=== PATIENT | female | born 1980 | race Caucasian/White ===

== ENCOUNTER 2016-05-07 09:17 | Emergency (ER) | payer OTHER ==
[2016-05-07 09:37] VITALS: BP 113/68
--- NOTE | 2016-05-07 09:55 | UC ---
Respiratory Complaint HPI - HPI Summary HPI Summary: 35 yo female with close to a week hx of sinus pressure and pain /post nasal drip now with left otalgia and decreased hearing chills ? fever upper teeth and gums hurt - History of Current Complaint Chief Complaint: UCGeneralIllness Stated Complaint: SORE THROAT,EAR PAIN,SINUS Time Seen by Provider: 05/07/16 09:48 Hx Obtained From: Patient Hx Last Menstrual Period: Last Depo 02/2016; No menes since depo d/c. Onset/Duration: Lasting Days Timing: Constant Severity Initially: Mild Severity Currently: Moderate Pain Intensity: 4 Character: Cough: Nonproductive Aggravating Factors: Nothing Alleviating Factors: Nothing Associated Signs And Symptoms: Positive: Fever - pepper, Chills, URI, Nasal Congestion, Sinus Discomfort - Allergies/Home Medications Allergies/Adverse Reactions: Allergies Allergy/AdvReac Type Severity Reaction Status Date / Time No Known Allergies Allergy Verified 05/07/16 09:27 Home Medications: Home Medications [id number] [Nyquil Severe Cold/Flu 5-6.25-10-325 mg/15Ml] 2 tab PO SEE INSTRUCTIONS PRN 05/07/16 [History Confirmed 05/07/16] PMH/Surg Hx/FS Hx/Imm Hx Previously Healthy: Yes Respiratory History Of: Reports: Bronchitis - x1 - Surgical History Surgical History: Yes Surgery Procedure, Year, and Place: BILATERAL TUBES EARS, 2008 - Family History Known Family History: Positive: Hypertension Negative: Cardiac Disease, Diabetes - Social History Alcohol Use: Rare Substance Use Type: None Smoking Status (MU): Heavy Every Day Tobacco Smoker Type: Cigarettes Amount Used/How Often: 1/2ppd Length of Time of Smoking/Using Tobacco: 15 Years Have You Smoked in the Last Year: Yes Household Exposure Type: Cigarettes - Immunization History Most Recent Influenza Vaccination: 01/2016 Most Recent Tetanus Shot: 2000 Review of Systems Constitutional: Fever, Chills Skin: Negative Eyes: Negative ENT: Dental Pain, Nasal Discharge Respiratory: Cough Cardiovascular: Negative Gastrointestinal: Negative Genitourinary: Negative Motor: Negative Neurovascular: Negative Musculoskeletal: Negative Neurological: Negative Psychological: Negative All Other Systems Reviewed And Are Negative: Yes Physical Exam Triage Information Reviewed: Yes Appearance: Well-Appearing, No Pain Distress, Well-Nourished Vital Signs: Initial Vital Signs Temp 98.6 F 05/07/16 09:30 Pulse 78 05/07/16 09:30 Resp 18 05/07/16 09:30 BP 113/68 05/07/16 09:30 Pulse Ox 99 05/07/16 09:30 Eyes: Positive: Conjunctiva Clear ENT: Positive: Nasal congestion, Nasal drainage, TMs normal - Right, TM bulging - Left, TM dull - L, Other: - L>R max sinus tenderness. Negative: Hearing grossly normal - markedly decreased left, Tonsillar swelling, Tonsillar exudate , Trismus, Muffled/hoarse voice Dental Exam: Normal Dental: Negative: Dental Fracture @, Abscess @ Neck: Positive: Supple, Nontender, No Lymphadenopathy Respiratory: Positive: Lungs clear, Normal breath sounds, No respiratory distress, No accessory muscle use Cardiovascular: Positive: RRR, No Murmur Musculoskeletal: Positive: ROM Intact Neurological: Positive: Alert Psychological Exam: Normal Skin Exam: Normal UC Diagnostic Evaluation - Laboratory O2 Sat by Pulse Oximetry: 99 Respiratory Course/Dx - Differential Dx/Diagnosis Provider Diagnoses: acute sinusitis. left serous otitis media Discharge - Discharge Plan Condition: Stable Disposition: HOME Prescriptions: Cefuroxime Axetil [Ceftin 250 MG] 250 mg PO BID #20 tab Fluticasone NASAL SPRAY 50MCG* [Flonase NASAL SPRAY 50MCG*] 2 spray BOTH NARES DAILY #1 btl Prednisone [Deltasone] 40 mg PO DAILY #10 tab Patient Education Materials: Sinusitis (ED), Serous Otitis Media (ED) Referrals: Aleena Day MD [Primary Care Provider] - Additional Instructions: recheck for new or worsening symptoms or if hearing not back to normal in 2-3 weeks
== END 2016-05-07 10:02 | disposition home or self-care (01) ==
LOC: UCCORT 09:17
DX: J01.90 Acute sinusitis, unspecified (principal); H65.92 Unspecified nonsuppurative otitis media, left ear; F17.210 Nicotine dependence, cigarettes, uncomplicated
CPT/HCPCS: 99212; G0463

== ENCOUNTER 2016-08-07 13:44 | Emergency (ER) | payer OTHER ==
[2016-08-07 14:51] VITALS: BP 131/80
[2016-08-07] MEDS ORDERED: Tetan/Diph/Pertus SYR(Tdap)* 0.5 ML SYR(BOOSTRIX) use SYR IM ONE (15:03)
--- NOTE | 2016-08-07 15:05 | UC ---
Laceration HPI - HPI Summary HPI Summary: pt presents with c/o laceration to left lateral mid thumb. Pt was cutting up watermelon and knife lacerated left thumb. Pt is not utd with tetanus - History Of Current Complaint Chief Complaint: UCLaceration Stated Complaint: LFT HAND THUMB LAC Time Seen by Provider: 08/07/16 14:44 Hx Obtained From: Patient Laceration Location: Finger - left thumb Mechanism Of Injury: Sharp Trauma - kitchen knife Onset/Duration: Still Present Severity: Mild Aggravating Factors: Movement Related History: Dominant Hand Right - Allergies/Home Medications Allergies/Adverse Reactions: Allergies Allergy/AdvReac Type Severity Reaction Status Date / Time No Known Allergies Allergy Verified 08/07/16 14:51 PMH/Surg Hx/FS Hx/Imm Hx Previously Healthy: Yes - Surgical History Surgical History: Yes Surgery Procedure, Year, and Place: BILATERAL TUBES EARS, 2008 - Family History Known Family History: Positive: Hypertension Negative: Cardiac Disease, Diabetes - Social History Alcohol Use: Rare Substance Use Type: None Smoking Status (MU): Heavy Every Day Tobacco Smoker Type: Cigarettes Amount Used/How Often: 1/2ppd Length of Time of Smoking/Using Tobacco: 1997 Have You Smoked in the Last Year: Yes Household Exposure Type: Cigarettes - Immunization History Most Recent Influenza Vaccination: 01/2016 Most Recent Tetanus Shot: 2000 Review of Systems Constitutional: Negative Skin: Other - laceration left thumb Eyes: Negative ENT: Negative Respiratory: Negative Cardiovascular: Negative Gastrointestinal: Negative Genitourinary: Negative Motor: Negative Neurovascular: Negative Musculoskeletal: Negative Neurological: Negative Psychological: Negative All Other Systems Reviewed And Are Negative: Yes Physical Exam Triage Information Reviewed: Yes Appearance: Well-Appearing Vital Signs: Initial Vital Signs Temp 98.2 F 08/07/16 14:43 Pulse 59 08/07/16 14:43 Resp 16 08/07/16 14:43 BP 131/80 08/07/16 14:43 Pulse Ox 99 08/07/16 14:43 Vital Signs Reviewed: Yes Eye Exam: Normal Neck exam: Normal Respiratory Exam: Normal Musculoskeletal Exam: Normal Musculoskeletal: Positive: Strength Intact, ROM Intact Neurological Exam: Normal Psychological Exam: Normal Skin Exam: Other - laceration lateral mid left thumb Laceration Repair - Laceration Repair 1 Description: Linear Laceration Size After Repair: Length (cm) - 2, Width (mm) - 2, Depth (mm) - 1 Modified For Repair: No Cleansing Completed Via Routine Prep: Yes Closure Material: Skin Adhesive, SteriStrips Closure Method: Single Layer - laceration repair with skin adhesive and steristrips, edges well approximated. Pt tolerated procedure well. Laceration Course/Dx - Differential Dx - Laceration/Wound Differental Diagnoses: Laceration Provider Diagnoses: Laceration left mid latear thumb repaired with skin adhesive and steri strips Discharge - Discharge Plan Condition: Stable Disposition: HOME Prescriptions: Cephalexin CAP* [Keflex 500 CAP*] 500 mg PO Q12H #10 cap Patient Education Materials: Laceration (ED), Skin Adhesive Care (ED) Forms: *Work Release Referrals: Aleena Day MD [Primary Care Provider] - Additional Instructions: Please keep splint on for 5 days for 24 hours a day. Please change dressing daily or more often if needed. Do not put antibiotic ointment on wound and do not remove steri strips. They will fall off on own.
== END 2016-08-07 15:35 | disposition home or self-care (01) ==
LOC: UCCORT 13:44
DX: S61.012A Laceration without foreign body of left thumb without damage to nail, initial encounter (principal); W26.0XXA Contact with knife, initial encounter; Y93.G1 Activity, food preparation and clean up; Y92.9 Unspecified place or not applicable; Z23 Encounter for immunization; F17.210 Nicotine dependence, cigarettes, uncomplicated
CPT/HCPCS: 12001; 90471; 90715; 99212; G0463

== ENCOUNTER 2017-01-28 08:35 | Emergency (ER) | payer OTHER ==
[2017-01-28 09:36] VITALS: BP 119/64
--- NOTE | 2017-01-28 10:25 | UC ---
Throat Pain/Nasal Brian HPI - HPI Summary HPI Summary: pt c/o sudden onset of sore throat, and bilateral ear pain X 2 days. - History of Current Complaint Chief Complaint: UCRespiratory Stated Complaint: SORE THROAT Time Seen by Provider: 01/28/17 09:54 Hx Obtained From: Patient Hx Last Menstrual Period: 12/21/16- on B/C pills to regulate menses ?: No Onset/Duration: Sudden Onset, Lasting Days, Still Present Severity: Moderate Associated Signs & Symptoms: Positive: Dysphagia - Allergies/Home Medications Allergies/Adverse Reactions: Allergies Allergy/AdvReac Type Severity Reaction Status Date / Time No Known Allergies Allergy Verified 01/28/17 09:36 Home Medications: Home Medications Desogestrel & Ethinyl Estradio [Enskyce 0.15-30 mg-Mcg] 1 tab PO DAILY 01/28/17 [History Confirmed 01/28/17] PMH/Surg Hx/FS Hx/Imm Hx Previously Healthy: Yes - Surgical History Surgical History: Yes Surgery Procedure, Year, and Place: BILATERAL TUBES EARS, 2008 - Family History Known Family History: Positive: Unknown, Hypertension Negative: Cardiac Disease, Diabetes - Social History Occupation: Employed Full-time Lives: With Family Alcohol Use: Occasionally Substance Use Type: None Smoking Status (MU): Heavy Every Day Tobacco Smoker Type: Cigarettes Amount Used/How Often: 1/2ppd Length of Time of Smoking/Using Tobacco: 1997 Have You Smoked in the Last Year: Yes Household Exposure Type: Cigarettes - Immunization History Most Recent Influenza Vaccination: 01/26/17 Most Recent Tetanus Shot: 2000 Vaccination Up to Date: Yes Review of Systems Constitutional: Fatigue Skin: Negative Eyes: Negative ENT: Sore Throat, Ear Ache Respiratory: Negative Cardiovascular: Negative Gastrointestinal: Negative Genitourinary: Negative Motor: Negative Neurovascular: Negative Musculoskeletal: Negative Neurological: Headache Psychological: Negative Is Patient Immunocompromised?: No All Other Systems Reviewed And Are Negative: Yes Physical Exam Triage Information Reviewed: Yes Appearance: Ill-Appearing Vital Signs: Initial Vital Signs Temp 97.4 F 01/28/17 09:31 Pulse 66 01/28/17 09:31 Resp 16 01/28/17 09:31 BP 119/64 01/28/17 09:31 Pulse Ox 100 01/28/17 09:31 Vital Signs Reviewed: Yes Eye Exam: Normal ENT Exam: Other ENT: Positive: Tonsillar swelling, Tonsillar exudate Dental Exam: Normal Neck exam: Normal Respiratory Exam: Normal Cardiovascular Exam: Normal Musculoskeletal Exam: Normal Neurological Exam: Normal Psychological Exam: Normal Skin Exam: Normal Throat Pain/Nasal Course/Dx - Differential Dx/Diagnosis Differential Diagnosis/HQI/PQRI: Mononucleosis, Pharyngitis, Tonsillitis Provider Diagnoses: tonsillitis Discharge - Discharge Plan Condition: Stable Disposition: HOME Prescriptions: Ibuprofen TAB* [Motrin TAB* 800 MG] 800 mg PO Q8H PRN #30 tab PRN Reason: Pain Lidocaine 2% VISCOUS* [Xylocaine 2% Viscous*] 15 ml SWISH SPIT Q4H PRN #1 btl PRN Reason: Pain Penicillin VK 500 MG TAB(NF) [Penicillin VK 500 mg Tab] 500 mg PO Q8H #30 tab Patient Education Materials: Tonsillitis (ED) Forms: *Work Release Referrals: Aleena Day MD [Primary Care Provider] - If Needed
== END 2017-01-28 10:43 | disposition home or self-care (01) ==
LOC: UCCORT 08:35
DX: J03.90 Acute tonsillitis, unspecified (principal); H92.03 Otalgia, bilateral; F17.210 Nicotine dependence, cigarettes, uncomplicated
CPT/HCPCS: 99212; G0463

== ENCOUNTER 2017-03-21 16:25 | Emergency (ER) | payer OTHER ==
[2017-03-21 17:16] VITALS: BP 115/69
--- NOTE | 2017-03-21 17:35 | ED ---
Headache - HPI Summary HPI Summary: 36 yr old female with complaint of headache. Onset 1500. She has headache, numbness from base of skull to forehead, numbness in both arms and now in both legs, and also some blur vision earlier. She has had dizzy feeling as well and off balance. The patient states she fell a couple of weeks ago. She has been going to a chiropractor and was last seen 6 days ago. He has done manipulation of her spine including the cervical spine. She also complains of ringing in ears. Denies radicular arm pain. - History Of Current Complaint Chief Complaint: UCGeneralIllness Stated Complaint: NUMBNESS/TINGLING IN HEAD,ARMS,& EARS Time Seen by Provider: 03/21/17 17:16 Hx Last Menstrual Period: 03/05/17 - Allergies/Home Medications Allergies/Adverse Reactions: Allergies Allergy/AdvReac Type Severity Reaction Status Date / Time No Known Allergies Allergy Verified 03/21/17 17:16 PMH/Surg Hx/FS Hx/Imm Hx - Surgical History Surgery Procedure, Year, and Place: BILATERAL TUBES EARS, 2007 Infectious Disease History: No Infectious Disease History: Denies: Hx Hepatitis, Hx Human Immunodeficiency Virus (HIV), Traveled Outside the [place] in Last 30 Days - Family History Known Family History: Positive: Unknown, Hypertension Negative: Cardiac Disease, Diabetes - Social History Alcohol Use: Rare Substance Use Type: Reports: None Smoking Status (MU): Heavy Every Day Tobacco Smoker Type: Cigarettes Amount Used/How Often: 1/2ppd Length of Time of Smoking/Using Tobacco: 1997 Have You Smoked in the Last Year: Yes Review of Systems Constitutional: Negative Positive: Headache, Paresthesia All Other Systems Reviewed And Are Negative: Yes Physical Exam Triage Information Reviewed: Yes Vital Signs On Initial Exam: Initial Vitals Temp Pulse Resp BP Pulse Ox 98.9 F 78 16 115/69 100 03/21/17 17:01 03/21/17 17:01 03/21/17 17:01 03/21/17 17:01 03/21/17 17:01 Vital Signs Reviewed: Yes Appearance: Positive: Well-Appearing, No Pain Distress Skin: Positive: Warm, Skin Color Reflects Adequate Perfusion Head/Face: Positive: Normal Head/Face Inspection Eyes: Positive: EOMI ENT: Positive: Pharynx normal, TMs normal Neck: Positive: Nontender Respiratory/Lung Sounds: Positive: Clear to Auscultation, Breath Sounds Present Cardiovascular: Positive: RRR. Negative: Murmur Abdomen Description: Positive: Nontender Musculoskeletal: Positive: Normal, Strength/ROM Intact Neurological: Positive: Sensory/Motor Intact, Alert, Oriented to Person Place, Time, CN Intact II-III, Normal Gait, Speech Normal Psychiatric: Positive: Normal - [place] Coma Scale Best Eye Response: 4 - Spontaneous Best Motor Response: 6 - Obeys Commands Best Verbal Response: 5 - Oriented Diagnostics - Vital Signs Vital Signs Temp Pulse Resp BP Pulse Ox 03/21/17 17:01 98.9 F 78 16 115/69 100 - Laboratory Lab Statement: Any lab studies that have been ordered have been reviewed, and results considered in the medical decision making process. Headache Course/Dx - Course Course Of Treatment: 36 yr old recommended she go to a stroke center by ambulance. She signed out AMA with refusal of transport. - Diagnoses Provider Diagnoses: Headache, Bilateral leg paresthesia, bilateral arm parasthesia Discharge - Discharge Plan Condition: Good Disposition: AGAINST MEDICAL ADVICE Referrals: Aleena Day MD [Primary Care Provider] -
== END 2017-03-21 17:29 | disposition left against medical advice (07) ==
LOC: UCCORT 16:25
DX: R51 Headache (principal); R20.2 Paresthesia of skin; F17.210 Nicotine dependence, cigarettes, uncomplicated
CPT/HCPCS: 99212; G0463

== ENCOUNTER 2017-04-21 12:31 | Emergency (ER) | payer OTHER ==
[2017-04-21 12:58] VITALS: BP 136/69
--- NOTE | 2017-04-21 13:56 | UC ---
Ear Complaint HPI - HPI Summary HPI Summary: bilateral ear pain x 1 week decrease hearing , no cold sx, no fever, no chills - History of Current Complaint Chief Complaint: UCEar Stated Complaint: BILATERAL EAR COMPLAINT Time Seen by Provider: 04/21/17 13:49 Hx Obtained From: Patient Hx Last Menstrual Period: 03/05/17 Onset/Duration: Gradual Onset, Lasting Weeks - 1, Still Present Severity Initially: Moderate Severity Currently: Moderate Pain Intensity: 6 Aggravating Factors: Nothing Alleviating Factors: Nothing Associated Signs/Symptoms: Positive: Discharge, Hearing Loss. Negative: Foreign Body Sensation, Trauma to Ear, Swelling @, URI Symptoms - Allergies/Home Medications Allergies/Adverse Reactions: Allergies Allergy/AdvReac Type Severity Reaction Status Date / Time No Known Allergies Allergy Verified 04/21/17 12:57 PMH/Surg Hx/FS Hx/Imm Hx - Additional Past Medical History Additional PMH: recurrent ear infection - Surgical History Surgical History: Yes Surgery Procedure, Year, and Place: BILATERAL TUBES EARS, 2008 - Family History Known Family History: Positive: Unknown, Hypertension Negative: Cardiac Disease, Diabetes - Social History Alcohol Use: Rare Substance Use Type: None Smoking Status (MU): Heavy Every Day Tobacco Smoker Type: Cigarettes Amount Used/How Often: 1/2ppd Length of Time of Smoking/Using Tobacco: 1997 Have You Smoked in the Last Year: Yes Household Exposure Type: Cigarettes - Immunization History Most Recent Influenza Vaccination: 01/26/17 Most Recent Tetanus Shot: 2000 Vaccination Up to Date: Yes Review of Systems Constitutional: Negative Skin: Negative Eyes: Negative ENT: Ear Ache Cardiovascular: Negative Gastrointestinal: Negative Is Patient Immunocompromised?: No All Other Systems Reviewed And Are Negative: Yes Physical Exam Triage Information Reviewed: Yes Appearance: Well-Appearing, No Pain Distress, Well-Nourished Vital Signs: Initial Vital Signs Temp 98.6 F 04/21/17 12:54 Pulse 58 04/21/17 12:54 Resp 16 04/21/17 12:54 BP 136/69 04/21/17 12:54 Pulse Ox 100 04/21/17 12:54 Vital Signs Reviewed: Yes Eyes: Positive: Conjunctiva Clear ENT: Positive: Normal ENT inspection, Pharynx normal, Pharyngeal erythema, TM bulging - left ear, TM dull - bilateral, TM red - bilateral Neck exam: Normal Neck: Positive: Supple, Nontender, No Lymphadenopathy Respiratory: Positive: Chest non-tender, Lungs clear, Normal breath sounds Cardiovascular: Positive: RRR, No Murmur, Pulses Normal Skin Exam: Normal Ear Complaint Course/Dx - Differential Dx/Diagnosis Provider Diagnoses: bialteral otitis media Discharge - Discharge Plan Condition: Stable Disposition: HOME Prescriptions: Amoxicillin PO (*) [Amoxicillin 875 MG (*)] 875 mg PO BID #20 tab Patient Education Materials: Serous Otitis Media (ED) Referrals: Aleena Day MD [Primary Care Provider] - 7 Days
== END 2017-04-21 13:58 | disposition home or self-care (01) ==
LOC: UCCORT 12:31
DX: H66.93 Otitis media, unspecified, bilateral (principal); F17.210 Nicotine dependence, cigarettes, uncomplicated
CPT/HCPCS: 99212; G0463

== ENCOUNTER 2017-06-26 14:02 | Emergency (ER) | payer OTHER ==
[2017-06-26 15:02] VITALS: BP 128/80
--- NOTE | 2017-06-26 15:03 | UC ---
Respiratory Complaint HPI - HPI Summary HPI Summary: 36 y/o female presents to the urgent care c/o sore throat, nasal congestion, sinus pressure and RAMIREZ since yesterday. Pt reports green nasal discharge. Her daughter has similar symptoms. Pain is 4/10 w/ swallowing. She took Ibuprofen 800mg PO this morning to alleviate symptoms. Pt denies fever, SOB, chest pain, abdominal pain, N/V/D - History of Current Complaint Stated Complaint: SORE THROAT, CONGESTION Time Seen by Provider: 06/26/17 15:01 Hx Obtained From: Patient Hx Last Menstrual Period: 05/24/17 ?: No Onset/Duration: Gradual Onset Timing: Constant Severity Initially: Mild Severity Currently: Moderate Pain Intensity: 4 Pain Scale Used: 0-10 Numeric Aggravating Factors: Nothing Alleviating Factors: OTC Meds - ibuprofen PO this morning Associated Signs And Symptoms: Positive: Nasal Congestion, Sinus Discomfort Related History: Seasonal Allergies - Risk Factors Pulmonary Embolism Risk Factors: Negative Cardiac Risk Factors: Negative Pseudomonas Risk Factors: Negative Tuberculosis Risk Factors: Negative - Allergies/Home Medications Allergies/Adverse Reactions: Allergies Allergy/AdvReac Type Severity Reaction Status Date / Time No Known Allergies Allergy Verified 06/26/17 15:02 PMH/Surg Hx/FS Hx/Imm Hx Previously Healthy: Yes - Pt denies PMHX - Surgical History Surgical History: Yes Surgery Procedure, Year, and Place: BILATERAL TUBES EARS, 2008 - Family History Known Family History: Positive: Unknown, Hypertension Negative: Cardiac Disease, Diabetes - Social History Occupation: Employed Full-time Lives: With Family Alcohol Use: Rare Substance Use Type: None Smoking Status (MU): Former Smoker Type: Cigarettes Amount Used/How Often: 1/2ppd Length of Time of Smoking/Using Tobacco: 1997 Have You Smoked in the Last Year: Yes Household Exposure Type: Cigarettes - Immunization History Most Recent Influenza Vaccination: 01/26/17 Most Recent Tetanus Shot: 2000 Vaccination Up to Date: Yes Review of Systems Constitutional: Negative Skin: Negative ENT: Sore Throat, Nasal Discharge, Sinus Congestion, Sinus Pain/Tenderness Respiratory: Negative Cardiovascular: Negative Gastrointestinal: Negative Genitourinary: Negative Motor: Negative Neurovascular: Negative Musculoskeletal: Negative Neurological: Headache Psychological: Negative Is Patient Immunocompromised?: No All Other Systems Reviewed And Are Negative: Yes Physical Exam - Summary Physical Exam Summary: VITAL SIGNS: Reviewed. GENERAL: Patient is a well developed and nourished female who is sitting comfortable in the examining table. Patient is not in any acute respiratory distress. HEAD AND FACE: No signs of trauma. No ecchymosis, hematomas or skull depressions. No sinus tenderness. EYES: PERRLA, EOMI x 2, No injected conjunctiva, no nystagmus. No photophobia. EARS: Hearing grossly intact. Ear canals and tympanic membranes are within normal limits. MOUTH: Positive pharynx with erythema, exudates, palatal petechiae. B/L tonsillar enlargement with exudate. Uvula in midline. NECK: Supple, trachea is midline, Positive anterior cervical lymphadenopathy, no JVD, no carotid bruit, no c-spine tenderness, neck with full ROM. No meningeal signs, no Kernig's or brudzinskis signs. CHEST: Symmetric, no tenderness at palpation LUNGS: Clear to auscultation bilaterally. No wheezing or crackles. CVS: Regular rate and rhythm, S1 and S2 present, no murmurs or gallops appreciated. ABDOMEN: Soft, non-tender. No signs of distention. No rebound no guarding, and no masses palpated. Bowel sounds are normal. EXTREMITIES: FROM in all major joints, no edema, no cyanosis or clubbing. NEURO: Alert and oriented x 3. No acute neurological deficits. Speech is normal and follows commands. SKIN: Dry and warm Triage Information Reviewed: Yes Vital Signs: Initial Vital Signs Temp 97.7 F 06/26/17 14:59 Pulse 79 06/26/17 14:59 Resp 16 06/26/17 14:59 BP 128/80 06/26/17 14:59 Pulse Ox 98 06/26/17 14:59 Diagnostic Evaluation - Laboratory O2 Sat by Pulse Oximetry: 98 Respiratory Course/Dx - Course Course Of Treatment: 36 y/o female presents to the urgent care c/o sore throat, nasal congestion, sinus pressure and RAMIREZ since yesterday. Pt reports green nasal discharge. Her daughter has similar symptoms. Pain is 4/10 w/ swallowing. She took Ibuprofen 800mg PO this morning to alleviate symptoms. Pt denies fever, SOB , chest pain, abdominal pain, N/V/D. Hx obtained. Pt w/ pharyngitis on examination.Rapid strep ordered: result: positive. Strep pharyngitis. Rx Amoxicillin PO and Ibuprofen PO for pain and swelling. PT Advised on hand washing to avoid spreading. Also advised to rest, eat well and avoid strenuous exercise. If symptoms do not improve or worsen advised to return to the urgent care or f/u with her PCP for further evaluation and treatment. PT understood and agreed - Differential Dx/Diagnosis Differential Diagnosis/HQI/PQRI: Asthma, Bronchitis, Influenza, Laryngitis, Other - sinusitis, pharyngitis, tonsillitis Provider Diagnoses: 1- Strep pharyngitis Discharge - Sign-Out/Discharge Documenting (check all that apply): Discharge/Admit/Transfer - D/C home - Discharge Plan Condition: Stable Disposition: HOME Prescriptions: Amoxicillin PO (*) [Amoxicillin 500 MG CAP*] 500 mg PO Q12H #20 cap Ibuprofen TAB* [Motrin TAB* 800 MG] 800 mg PO Q6H PRN #30 tab PRN Reason: Sore Throat Patient Education Materials: Strep Throat (ED) Forms: *Work Release Referrals: Aleena Day MD [Primary Care Provider] - 3 Days Additional Instructions: 1- Please take the full course of the antibiotic to avoid resistance. 2-Please take ibuprofen PO q6-8hrs prn as instructed after meals to alleviate pain and swelling. Increase fluid intake, eat well, rest and avoid strenuous exercise 3-If symptoms do not improve or worsen please return to the urgent care or f/u with your PCP for further evaluation and treatment. - Billing Disposition and Condition Condition: STABLE Disposition: HOME
== END 2017-06-26 15:33 | disposition home or self-care (01) ==
LOC: UCCORT 14:02
DX: J02.0 Streptococcal pharyngitis (principal); Z87.891 Personal history of nicotine dependence
CPT/HCPCS: 87651; 99212; G0463

== ENCOUNTER 2017-10-11 08:00 | Emergency (ER) | payer OTHER ==
--- NOTE | 2017-10-11 08:10 | UC ---
Complaint Female HPI - HPI Summary HPI Summary: Patient is a 37-year-old female. who has been off her control pills for 3 months. Patient has had 2 seemed. So since stopping pills. Patient states stopped because she is trying to get . Patient presents today because he woke at 3 in the morning with low back pain and abdominal cramping. Patient states she passed large amounts of blood and clots. Patient states she's been going through a pad every 30 minutes. Patient reports nausea but no vomiting. Patient did take 800 mg of Motrin at 4:30 this morning with little effect. Patient states the bleeding has slowed slightly however she still changing her pad every 30 minutes. Patient states her period was last on September 14. Patient states it was normal in terms of time, flow, and duration. Patient has not taken test. Patient denies feeling lightheaded. No chest pain or shortness of breath. Patient continues to feel nauseous. Patient states typically she does not have cramping or discomfort with her periods. Patient is followed by Dr. Estevez. Patient states this doctor's retiring and will need a new [employer]. Patient's medications reviewed this visit - History Of Current Complaint Stated Complaint: PERSONAL Hx Obtained From: Patient Hx Last Menstrual Period: 05/24/17 Onset/Duration: Sudden Onset Severity Initially: Mild Severity Currently: Mild Pain Scale Used: 0-10 Numeric - Allergies/Home Medications Allergies/Adverse Reactions: Allergies Allergy/AdvReac Type Severity Reaction Status Date / Time No Known Allergies Allergy Verified 10/11/17 08:10 PMH/Surg Hx/FS Hx/Imm Hx Previously Healthy: Yes - Surgical History Surgical History: Yes Surgery Procedure, Year, and Place: BILATERAL TUBES EARS, 2008 - Family History Known Family History: Positive: Unknown, Hypertension Negative: Cardiac Disease, Diabetes - Social History Occupation: Employed Full-time Lives: With Family Alcohol Use: Rare Substance Use Type: None Smoking Status (MU): Former Smoker Type: Cigarettes Amount Used/How Often: 1/2ppd Length of Time of Smoking/Using Tobacco: 1997 Have You Smoked in the Last Year: Yes Household Exposure Type: Cigarettes - Immunization History Most Recent Influenza Vaccination: 01/26/17 Most Recent Tetanus Shot: 2000 Vaccination Up to Date: Yes Review of Systems Constitutional: Negative Genitourinary: Abnormal Bleeding All Other Systems Reviewed And Are Negative: Yes Physical Exam - Summary Physical Exam Summary: Vital Signs Reviewed: Yes A+Ox3, no distress mild anxious Eyes: Conjunctiva Clear, STEVE. EOM intact and full ENT: Hearing grossly normal TM x 2 clear, mmoist, uvula midline, no exudate, no erythema Neck: Positive: Supple Respiratory: Positive: No respiratory distress, No accessory muscle use + CTA throughout no w/r Cardiovascular: RRR nl s1, s2 no m/r CBT <2 sec abd soft + BS nt/nd no guarding, no distension, soft, no CVA pelvic: pt declined Musculoskeletal Exam: BRADY x 4 without difficulty Strength Intact, ROM Intact Neurological: Positive: Alert, + sensation throughout Psychological: Positive: Normal Response To Family Skin: Positive: no rash, no ecchymosis Triage Information Reviewed: Yes Complaint Female Dx - Course Course Of Treatment: Patient presents with heavy menstrual periods that woke her from sleep at 3 this morning. Patient states she setting up With clots every 30 minutes. Patient states she took some Motrin for at 430am with little improvement. Patient states she's one week early on her cycle. Patient is actively trying to get and stopped control approximately 3 months ago. Patient's last normal cycle was on 09/14/17. Pt concerned second to the discomfort and volume of blood. Pt denies feeling lightheadedness, cp, sob. Will check urine and test. Will recommend pt go to ED for evaluation with hct. Pt states understanding and agreement with plan. After discussion, pt declined pelvic exam at as may need repeat at ED. Spoke with Dr. Walter [facility] ED - aware pt coming. work note written for today. pt's BP mildly elevated - pt recommended follow-up - Differential Dx/Diagnosis Provider Diagnoses: menorrhagia. dysmenorrhea Discharge - Sign-Out/Discharge Documenting (check all that apply): Patient Departure - Discharge Plan Condition: Stable Disposition: HOME-RECOMMEND TO ED Referrals: Aleena Day MD [Primary Care Provider] - - Billing Disposition and Condition Condition: STABLE Disposition: Home-Recommend to ED
[2017-10-11 08:13] VITALS: BP 141/83
== END 2017-10-11 08:55 | disposition home health service (06) ==
LOC: UCCORT 08:00
DX: N92.0 Excessive and frequent menstruation with regular cycle (principal); N94.6 Dysmenorrhea, unspecified; Z87.891 Personal history of nicotine dependence
CPT/HCPCS: 81003; 84702; 99212; G0463

== ENCOUNTER 2018-02-10 13:19 | Emergency (ER) | payer OTHER ==
[2018-02-10 13:56] VITALS: BP 128/76
--- NOTE | 2018-02-10 14:02 | UC ---
Respiratory Complaint HPI - HPI Summary HPI Summary: Patient is 37 year old female, who present today to the urgent care with chest congestion for past 1 week. Now she also reports left ear fullness along with decreased hearing and some discomfort. She does have a history of bilateral tympanostomy tube placed in 2007 and that were removed later. No skin rash. Denies any fever, chills, chest pain but feel shortness of breath with coughing . Denies any abdominal pain , nausea or vomiting , diarrhea or constipation. Overall her symptoms have been constant, without getting worse and no improvement noted - History of Current Complaint Chief Complaint: UCGeneralIllness Stated Complaint: CHEST CONGESTION LEFT EAR Time Seen by Provider: 02/10/18 13:52 Hx Obtained From: Patient Hx Last Menstrual Period: 01/07/18 ?: No - urine test negative today Pain Intensity: 2 - Allergies/Home Medications Allergies/Adverse Reactions: Allergies Allergy/AdvReac Type Severity Reaction Status Date / Time No Known Allergies Allergy Verified 10/11/17 08:10 Home Medications: Home Medications guaiFENesin [Mucinex] 600 mg PO ONCE 02/10/18 [History Confirmed 02/10/18] PMH/Surg Hx/FS Hx/Imm Hx - Additional Past Medical History Additional PMH: Depression, on Zoloft Previously Healthy: Yes - Surgical History Surgical History: Yes Surgery Procedure, Year, and Place: BILATERAL TUBES EARS, 2007 - Family History Known Family History: Positive: Unknown, Hypertension Negative: Cardiac Disease, Diabetes - Social History Alcohol Use: Rare Substance Use Type: None Smoking Status (MU): Former Smoker Type: Cigarettes Amount Used/How Often: 1/2ppd Length of Time of Smoking/Using Tobacco: 1997 Have You Smoked in the Last Year: Yes Household Exposure Type: Cigarettes - Immunization History Most Recent Influenza Vaccination: 01/26/17 Most Recent Tetanus Shot: 2000 Vaccination Up to Date: Yes Review of Systems All Other Systems Reviewed And Are Negative: Yes Constitutional: Positive: Negative Skin: Positive: Negative Eyes: Positive: Negative ENT: Positive: Negative, Other - Left ear fullness and discomfort Respiratory: Positive: Shortness Of Breath - After coughing, Cough - Productive Cardiovascular: Positive: Negative Gastrointestinal: Positive: Negative Genitourinary: Positive: Negative Motor: Positive: Negative Neurovascular: Positive: Negative Musculoskeletal: Positive: Negative Neurological: Positive: Negative Psychological: Positive: Negative Is Patient Immunocompromised?: No Physical Exam - Summary Physical Exam Summary: Physical Exam: Const: Appears well. No signs of apparent distress present. Alert and oriented x 3. Musculo: Walks with a normal gait. Head/Face: Atraumatic, normocephalic on inspection. Eyes: EOMI and PERRLA in both eyes. Conjunctivae clear. No discharge noted ENT: Hearing normal, TM normal appearing bilaterally - scar from previous tympanostomy tubes noted. Wax noted in bilateral external auditory canal but not impacted No pharyngeal erythema or exudates No lymphadenopathy Respiratory: Respirations are unlabored. Air entry equal to auscultation bilaterally, there is slight decreased air entry with rhonchi in the bilateral lower lobes, no wheezing CVS: Regular rate and Rhythm, S1S2 normal , no murmurs identified. Extremities: Peripheral circulation is grossly normal. Pulses 2+ Abdomen : Soft non tender , nondistended , Bowel sounds present . No guarding , rebound tenderness or rigidity noted. Skin: No lesions or rash located on the upper extremities or on the lower extremities. Neuro: Cranial nerves II to XII intact, motor and sensory intact. DTR Intact bilaterally. Mood is normal. Affect is normal. Triage Information Reviewed: Yes Vital Signs: Initial Vital Signs Temp 97.5 F 02/10/18 13:53 Pulse 73 02/10/18 13:53 Resp 16 02/10/18 13:53 BP 128/76 02/10/18 13:53 Pulse Ox 99 02/10/18 13:53 Vital Signs Reviewed: Yes Diagnostic Evaluation - Laboratory O2 Sat by Pulse Oximetry: 99 Respiratory Course/Dx - Course Course Of Treatment: During the visit today, we obtained Urine test as LMP was and she has not had her period yet . She reports that it is pretty regular about 30 days and they have been trying for . Urine test came back negative. We discussed the findings and further plan. Her chances of being is negligible but we plan to defer the x- rays at this time. I will prescribe the medication to the pharmacy . Plan to follow up within a week with the primary care doctor. Her primary care doctor has left so she will work on getting in with a new primary care doctor, left total has been put in. Otherwise she can return here in a week if no improvement. Patient expressed understanding . - Differential Dx/Diagnosis Provider Diagnosis: Pneumonia Discharge - Sign-Out/Discharge Documenting (check all that apply): Patient Departure All imaging exams completed and their final reports reviewed: No Studies - Discharge Plan Condition: Stable Disposition: HOME Prescriptions: Azithromyxin TATY (NF) [Z-Taty (Zithromax) 250 mg tabs #6] 2 tab PO .TODAY, THEN 1 DAILY 5 Days #6 tab Patient Education Materials: Pneumonia (ED) Referrals: [facility] [Outside] - 1 Week Alicia Wood NP [Primary Care Provider] - 1 Week Additional Instructions: Please start taking the medication as prescribed to the pharmacy . Follow up with your primary care doctor in 1 week Return to Urgent care / ER if symptoms get worse. - Billing Disposition and Condition Condition: STABLE Disposition: Home
== END 2018-02-10 14:43 | disposition home or self-care (01) ==
LOC: UCCORT 13:19
DX: J18.9 Pneumonia, unspecified organism (principal); F32.9 Major depressive disorder, single episode, unspecified; Z87.891 Personal history of nicotine dependence
CPT/HCPCS: 84702; 99212; G0463

== ENCOUNTER 2018-06-21 21:12 | Emergency (ER) | payer OTHER ==
[2018-06-21 21:22] VITALS: BP 125/66
[2018-06-21] MEDS ORDERED: Amoxicillin PO (*) 500 MG CAP PO ONE (21:38)
--- NOTE | 2018-06-21 21:46 | UC ---
Throat Pain/Nasal Brian HPI - HPI Summary HPI Summary: Pt presents with c/o nasal congestion, malaise, fever, chills, sinus pressure and pain, and left ear ache X 3 days. Pt is 21 weeks with twins. - History of Current Complaint Chief Complaint: UCGeneralIllness Stated Complaint: SINUS/BILATERAL EAR COMPLAINT Time Seen by Provider: 06/21/18 21:16 Hx Obtained From: Patient Hx Last Menstrual Period: 01/07/18 ?: Yes Onset/Duration: Gradual Onset, Lasting Days, Worse Since - onset Severity: Moderate Pain Intensity: 8 Associated Signs & Symptoms: Positive: Dysphagia, Sinus Discomfort, Nasal Discharge - Epiglottits Risk Factors Epiglottis Risk Factors: Negative - Allergies/Home Medications Allergies/Adverse Reactions: Allergies Allergy/AdvReac Type Severity Reaction Status Date / Time No Known Allergies Allergy Verified 06/21/18 21:22 Home Medications: Home Medications Vits96/Iron Fum/Folic [ Tablet] 1 tab PO DAILY 06/21/18 [ History Confirmed 06/21/18] Promethazine TAB* [Phenergan Tab*] 25 mg PO Q8H PRN 06/21/18 [History Confirmed 06/21/18] Pyridoxine HCl (Vitamin B6) [Vitamin B-6] 25 mg PO DAILY 06/21/18 [History Confirmed 06/21/18] PMH/Surg Hx/FS Hx/Imm Hx Previously Healthy: Yes - Surgical History Surgical History: Yes Surgery Procedure, Year, and Place: BILATERAL TUBES EARS, 2007 - Family History Known Family History: Positive: Unknown, Hypertension Negative: Cardiac Disease, Diabetes - Social History Occupation: Employed Full-time Lives: With Family Alcohol Use: Rare Substance Use Type: None Smoking Status (MU): Light Every Day Tobacco Smoker Type: Cigarettes Amount Used/How Often: 1/2ppd Length of Time of Smoking/Using Tobacco: 1997 Have You Smoked in the Last Year: Yes Household Exposure Type: Cigarettes - Immunization History Most Recent Influenza Vaccination: 01/26/17 Most Recent Tetanus Shot: 2000 Vaccination Up to Date: Yes Review of Systems All Other Systems Reviewed And Are Negative: Yes Constitutional: Positive: Fever, Chills, Fatigue Skin: Positive: Negative Eyes: Positive: Negative ENT: Positive: Ear Ache, Sinus Congestion Respiratory: Positive: Cough Cardiovascular: Positive: Negative Gastrointestinal: Positive: Negative Genitourinary: Positive: Negative Motor: Positive: Negative Neurovascular: Positive: Negative Musculoskeletal: Positive: Myalgia Neurological: Positive: Negative Psychological: Positive: Negative Is Patient Immunocompromised?: No Physical Exam Triage Information Reviewed: Yes Appearance: Ill-Appearing Vital Signs: Initial Vital Signs Temp 98.9 F 06/21/18 21:19 Pulse 78 06/21/18 21:19 Resp 16 06/21/18 21:19 BP 125/66 06/21/18 21:19 Pulse Ox 98 06/21/18 21:19 Vital Signs Reviewed: Yes Eye Exam: Normal ENT: Positive: Nasal congestion, Sinus tenderness, Other - cerumen left ear Dental Exam: Normal Neck exam: Normal Respiratory Exam: Normal Cardiovascular Exam: Normal Musculoskeletal Exam: Normal Neurological Exam: Normal Psychological Exam: Normal Skin Exam: Normal Throat Pain/Nasal Course/Dx - Differential Dx/Diagnosis Differential Diagnosis/HQI/PQRI: Influenza, Sinusitis, URI Provider Diagnosis: Sinusitis, Impacted cerumen of left ear Discharge - Sign-Out/Discharge Documenting (check all that apply): Patient Departure All imaging exams completed and their final reports reviewed: No Studies - Discharge Plan Condition: Stable Disposition: HOME Prescriptions: Amoxicillin PO (*) [Amoxicillin 875 MG (*)] 875 mg PO Q12H #20 tab Cetirizine* [ZyrTEC 10 MG TAB*] 10 mg PO DAILY #10 tab Patient Education Materials: Sinusitis (ED) Referrals: Alicia Wood NP [Primary Care Provider] - If Needed Additional Instructions: Please follow up with your PCP and your OB provider as needed. - Billing Disposition and Condition Condition: STABLE Disposition: Home
== END 2018-06-21 21:47 | disposition home or self-care (01) ==
LOC: UCCORT 21:12
DX: H61.22 Impacted cerumen, left ear (principal); J01.90 Acute sinusitis, unspecified; F17.210 Nicotine dependence, cigarettes, uncomplicated
CPT/HCPCS: 99212; A9270-GY; G0463

== ENCOUNTER 2018-07-28 19:16 | Emergency (ER) | payer OTHER ==
[2018-07-28 20:06] VITALS: BP 125/64
[2018-07-28] MEDS ORDERED: Amoxicillin PO (*) 500 MG CAP PO ONE (20:15)
[2018-07-28] MEDS ORDERED: Amoxicillin PO (*) 250 MG CAP PO ONE (20:16)
--- NOTE | 2018-07-28 20:20 | UC ---
Ear Complaint HPI - HPI Summary HPI Summary: left ear pain and sore throat end of this past week -had recent left otitis early July - History of Current Complaint Chief Complaint: UCGeneralIllness Stated Complaint: EAR PAIN Time Seen by Provider: 07/28/18 20:10 Hx Obtained From: Patient Hx Last Menstrual Period: 01/07/18 ?: Yes Onset/Duration: Sudden Onset, Lasting Days Severity Initially: Moderate Severity Currently: Moderate Pain Intensity: 6 Aggravating Factors: Nothing Alleviating Factors: Nothing Associated Signs/Symptoms: Positive: URI Symptoms - Allergies/Home Medications Allergies/Adverse Reactions: Allergies Allergy/AdvReac Type Severity Reaction Status Date / Time No Known Allergies Allergy Verified 07/28/18 20:06 Home Medications: Home Medications Ondansetron ODT TAB* [Zofran 4 MG Odt TAB*] 4 mg PO Q8H PRN 07/28/18 [History Confirmed 07/28/18] PMH/Surg Hx/FS Hx/Imm Hx Previously Healthy: Yes - Surgical History Surgical History: Yes Surgery Procedure, Year, and Place: BILATERAL TUBES EARS, 2008 - Family History Known Family History: Positive: Unknown, Hypertension Negative: Cardiac Disease, Diabetes - Social History Alcohol Use: None Substance Use Type: None Smoking Status (MU): Former Smoker Type: Cigarettes Amount Used/How Often: 1/2ppd Length of Time of Smoking/Using Tobacco: 1997 Have You Smoked in the Last Year: Yes Household Exposure Type: Cigarettes - Immunization History Most Recent Influenza Vaccination: 01/26/17 Most Recent Tetanus Shot: 2000 Vaccination Up to Date: Yes Review of Systems All Other Systems Reviewed And Are Negative: Yes ENT: Positive: Sore Throat, Ear Ache, Nasal Discharge, Sinus Congestion Respiratory: Positive: Cough Is Patient Immunocompromised?: No Physical Exam Triage Information Reviewed: Yes Appearance: Well-Appearing, Well-Nourished, Pain Distress Vital Signs: Initial Vital Signs Temp 97.8 F 07/28/18 20:02 Pulse 94 07/28/18 20:02 Resp 16 07/28/18 20:02 BP 125/64 07/28/18 20:02 Pulse Ox 100 07/28/18 20:02 Vital Signs Reviewed: Yes Eye Exam: Normal ENT: Positive: Pharyngeal erythema, TM bulging, TM dull, TM red Dental Exam: Normal Neck exam: Normal Respiratory Exam: Normal Respiratory: Positive: Chest non-tender, Lungs clear, Normal breath sounds Cardiovascular Exam: Normal Cardiovascular: Positive: RRR, No Murmur, Pulses Normal Abdominal Exam: Normal Bowel Sounds: Positive: Present Musculoskeletal Exam: Normal Neurological Exam: Normal Psychological Exam: Normal Skin Exam: Normal Ear Complaint Course/Dx - Course Course Of Treatment: hx obtained, exam performed ,med reviewed, treated for left otitis - Differential Dx/Diagnosis Differential Diagnosis/HQI/PQRI: Cellulitis, Otitis Externa, Otitis Media, URI Provider Diagnosis: Left otitis media Discharge - Sign-Out/Discharge Documenting (check all that apply): Patient Departure All imaging exams completed and their final reports reviewed: No Studies - Discharge Plan Condition: Stable Disposition: HOME Prescriptions: Amoxicillin PO (*) [Amoxicillin 875 MG (*)] 875 mg PO BID #19 tab Fluticasone NASAL SPRAY 50MCG* [Flonase NASAL SPRAY 50MCG*] 2 spray BOTH NARES DAILY #1 btl Patient Education Materials: Ear Infection (ED) Referrals: Alicia Wood NP [Primary Care Provider] - Additional Instructions: 1. take the medication as prescribed. 2. I decided on the flonase as you can use it daily for the next month without issue. 3. increase fluids and get rest 4. Warm compresses to ear and gentle massage of the neck to help the fluid drain. 5. FOllow up as needed. - Billing Disposition and Condition Condition: STABLE Disposition: Home
== END 2018-07-28 20:34 | disposition home or self-care (01) ==
LOC: UCCORT 19:16
DX: H66.92 Otitis media, unspecified, left ear (principal); Z87.891 Personal history of nicotine dependence
CPT/HCPCS: 99212; A9270-GY; G0463

== ENCOUNTER 2018-09-02 20:46 | Emergency (ER) | payer OTHER ==
[2018-09-02 21:39] VITALS: BP 119/63
--- NOTE | 2018-09-02 22:40 | UC ---
UC General HPI - HPI Summary HPI Summary: L EAR DISCOMFORT X 5 DAYS. HX RECURRENT EAR INFECTIONS. TX WITH AMOXICILLIN ABOUT 2.5 WEEKS AGO FOR AN INFECTION IN THE SAME EAR. TX WITH AMOXICILLIN IN JULY WELL. HAD A TUBE IN THAT SAME EAR IN HER 20'S DO TO RECURRENT INFECTIONS. NO FEVER. CURRENTLY AND DUE IN ABOUT 6 WEEKS. - History of Current Complaint Chief Complaint: UCEar Stated Complaint: LEFT EAR PAIN Time Seen by Provider: 09/02/18 22:34 Hx Obtained From: Patient Hx Last Menstrual Period: 01/07/18 Onset/Duration: Gradual Onset Timing: Constant Pain Intensity: 0 Associated Signs & Symptoms: Negative: Fever - Allergy/Home Medications Allergies/Adverse Reactions: Allergies Allergy/AdvReac Type Severity Reaction Status Date / Time No Known Allergies Allergy Verified 09/02/18 21:34 PMH/Surg Hx/FS Hx/Imm Hx - Additional Past Medical History Additional PMH: OM, 32 WEEKS - Surgical History Surgical History: Yes Surgery Procedure, Year, and Place: BILATERAL TUBES EARS, 2007 - Family History Known Family History: Positive: Unknown, Hypertension Negative: Cardiac Disease, Diabetes - Social History Lives: With Family Alcohol Use: None Substance Use Type: None Smoking Status (MU): Former Smoker Type: Cigarettes Amount Used/How Often: 1/2ppd Length of Time of Smoking/Using Tobacco: 1997 Have You Smoked in the Last Year: Yes Household Exposure Type: Cigarettes - Immunization History Most Recent Influenza Vaccination: 01/26/17 Most Recent Tetanus Shot: 2019 Vaccination Up to Date: Yes Review of Systems All Other Systems Reviewed And Are Negative: No Constitutional: Negative: Fever, Chills ENT: Positive: Ear Ache - L. Negative: Sore Throat, Sinus Congestion Neurological: Negative: Headache Physical Exam Triage Information Reviewed: Yes Appearance: Well-Appearing Vital Signs: Initial Vital Signs Temp 98.9 F 09/02/18 21:35 Pulse 98 09/02/18 21:35 Resp 16 09/02/18 21:35 BP 119/63 09/02/18 21:35 Pulse Ox 98 09/02/18 21:35 Vital Signs Reviewed: Yes Eyes: Positive: Conjunctiva Clear ENT: Positive: Pharynx normal, TMs normal - R, L is yellow and buldging. No auricular adenoapthy or mastoid tenderness.. Negative: Nasal congestion, Nasal drainage Neck: Positive: Supple, Nontender, No Lymphadenopathy Respiratory: Positive: No respiratory distress Abdomen Description: Positive: Other: - gRAVID UTERUS. Musculoskeletal: Positive: ROM Intact Neurological: Positive: Alert Psychological: Positive: Age Appropriate Behavior Skin Exam: Normal Course/Dx - Differential Dx - Multi-Symptom Differential Diagnoses: Other - recurrent OM that was recently tx with amoxicillin. will tx with augmentin and refer back to her ent, Dr cho. - Diagnoses Provider Diagnosis: Otitis media Discharge - Sign-Out/Discharge Documenting (check all that apply): Patient Departure All imaging exams completed and their final reports reviewed: No Studies - Discharge Plan Condition: Stable Disposition: HOME Prescriptions: Amoxicillin/Clavulanate TAB* [Augmentin TAB 875*] 875 mg PO BID 10 Days #20 tab Patient Education Materials: Ear Infection (ED) Referrals: Jovanny Cho MD [Medical Doctor] - 7 Days - Billing Disposition and Condition Condition: STABLE Disposition: Home - Attestation Statements Provider Attestation: Per institutional requirements, I have reviewed the chart, however, I was not consulted specifically or made aware of this patient by the midlevel provider. I did not personally evaluate, interact with , or disposition this patient.
[2018-09-02] MEDS ORDERED: Amoxicillin/Clavulanate TAB* 875 MG PO ONE (22:47)
== END 2018-09-02 23:01 | disposition home or self-care (01) ==
LOC: UCCORT 20:48
DX: O99.89 Other specified diseases and conditions complicating pregnancy, childbirth and the puerperium (principal); H66.92 Otitis media, unspecified, left ear; Z3A.00 Weeks of gestation of pregnancy not specified; Z87.891 Personal history of nicotine dependence; Z96.22 Myringotomy tube(s) status
CPT/HCPCS: 99212; A9270-GY; G0463

== ENCOUNTER 2018-12-29 11:12 | Emergency (ER) | payer MEDICAID, OTHER ==
--- OUTSIDE RECORDS SUMMARY | 2018-12-29 11:42 | XMS REPORT | Continuity of Care Document ---
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 [phone] Problems Description No Active Problems Social History Type Date Description Comments Sex Unknown Tobacco Use Start: Unknown currently smokes 1/2 Pack Daily Cigarette Use Pack Years - 13 ETOH Use Denies alcohol use Tobacco Use Start: Unknown End: Unknown Patient is a former smoker Smoking Status Reviewed: 12/03/18 Patient is a former smoker Allergies, Adverse Reactions, Alerts Description No Known Drug Allergies Medications Active Medications SIG Qnty Indications Ordering Date Provider 1 by mouth every 100units Z32.01 [place], 02/21/2018 Gummies/Dha & Folic day *may Gayla Acid substitute as per INSTRUCTIONAL RESOURCE TEACHER 0.4-32.5mg formulary Chewtabs Sertraline HCL 1 by mouth every 30tabs Ranjana Aponte, 05/07/2014 day 100mg Tablets Medications Administered in Office Medication SIG Qnty Indications Ordering Provider Date PPD Injection Family Nurse 01/31/2017 Depomedroxyporgesterone 150MG Aleena Day M.D. 11/17/2015 Injection Depomedroxyporgesterone 150MG Edna Yates, 08/30/2015 Injection Depfaisalyporgesterone 150MG Edna Yates, 06/09/2015 Injection MD Menezesorgesterone 150MG Ranjana Aponte MD 03/18/2015 Injection Depomedroxyporgesterone 150MG [place], 12/30/2014 Injection YENIFER Shukla Depomedroxyporgesterone 150MG Chriswilian, 10/14/2014 Injection YENIFER Shukla Depomedroxyporgesterone 150MG Martha Warren, 07/23/2014 Injection Flako Depomedroxyporgesterone 150MG Unknown 05/07/2014 Injection Depomedroxyporgesterone 150MG Unknown 01/08/2014 Injection Depomedroxyporgesterone 150MG Unknown 10/22/2013 Injection Depomedroxyporgesterone 150MG Unknown 07/17/2013 Injection Depomedroxyporgesterone 150MG Unknown 04/22/2013 Injection Depomedroxyporgesterone 150MG Unknown 01/21/2013 Injection Depomedroxyporgesterone 150MG Unknown 10/22/2012 Injection Depomedroxyporgesterone 150MG Unknown 07/24/2012 Injection Depomedroxyporgesterone 150MG Unknown 05/06/2012 Injection Immunizations CPT Code Status Date Vaccine Lot # [id number] Given 01/19/2017 Influenza Virus Vaccine Quadrivalent Iiv4 Split [id number] Pres[place] [id number] Given 12/29/2015 Influenza Virus Vaccine Split Virus Use For [id number] Individual 3Yr Older [id number] Given 01/26/2015 Influenza Vaccine (Fluzone) Age 3 And Older [id number] Given 01/01/2013 flu vaccination Vital Signs Date Vital Result Comment 12/03/2018 11:09am BP Systolic Sitting Left Arm 112 mmHg BP Diastolic Sitting Left Arm 70 mmHg Body Temperature 99.0 F Heart Rate 88 /min Respiratory Rate 18 /min Height 70 inches 5'10" Weight 254.00 lb BMI (Body Mass Index) 36.4 kg/m2 BSA (Body Surface Area) 2.31 m2 [place] body weight in kilograms 68 kg 03/06/2018 2:46pm BP Systolic Sitting Right Arm 130 mmHg BP Diastolic Sitting Right Arm 72 mmHg Body Temperature 98.1 F Heart Rate 69 /min Respiratory Rate 16 /min Height 71 inches 5'11" Weight 238.00 lb BMI (Body Mass Index) 33.2 kg/m2 BSA (Body Surface Area) 2.27 m2 [place] body weight in kilograms 70 kg O2 % BldC Oximetry 97 % Results Test Date Facility Test Result H/L Range Note Urine Dipstick 12/03/2018 [facility]a Leuko - Negative Ua Nitrite - Negative Ua Urobilinogen .2 0.2 - 1.0 E.U./dL Ua Protein 1+ High Negative Ua PH 6 Low 6.5-7.5 Ua Blood - Negative Ua Specific [place] 1.015 1.010-1.030 Ua Ketones - Negative Ua Bilirubin - Negative Ua Glucose - Negative Procedures Description No Information Available Medical Devices Description No Information Available Encounters Description No Information Available Assessments Date Code Description Provider 12/03/2018 Z00.00 Encounter for general adult medical examination June Bee PA without abnormal findings 12/03/2018 Z23 Encounter for immunization June Bee PA 12/03/2018 Z13.220 Encounter for screening for lipoid disorders June Bee PA 12/03/2018 R53.83 Other fatigue June Bee PA Plan of Treatment 12/03/2018 - June Bee PAZ00.00 Encounter for general adult medical examination without abnormal findingsComments:Discussed healthy habits. Plenty of water, fresh fruits and vegetables and whole grains in the diet.Limit sugary foods and drinks. Limit fried foods, fast foods and processed foods. Try to exercise abdoulaye regular basis. 30-45 minutes 4-5 days a week is a reasonable goal. Try to get 7-8 hours of sleep each night.Follow up:6 months.Z23 Encounter for immunizationImmunizations/Injections:PPDInfluenza Virus Vaccine, Quadrivalent, 36 Mos+, .5MLZ13.220 Encounter for screening for lipoid kydkqvosxH85.83 Other fatigue Functional Status Functional Condition Comment Date Status Independent with all ADL's Active Mental Status Description No Information Available Referrals Description No Information Available
[2018-12-29 11:47] VITALS: BP 118/66
--- NOTE | 2018-12-29 12:51 | UC ---
Complaint Female HPI - HPI Summary HPI Summary: Pt presents with c/o gradual onset of right low back pain without known injury. Pt has chronic back pain but states that this pain began in right low back/ flank pain and has now moved to RLQ pain. Pt reports that she feels fatigued, malaise and urinary symptoms of urgency. Pt is 3 months post . - History Of Current Complaint Chief Complaint: UCGU Stated Complaint: UTI SYMPTOMS Time Seen by Provider: 12/29/18 11:55 Hx Obtained From: Patient Hx Last Menstrual Period: 12/10/18 ?: No Onset/Duration: Gradual Onset, Lasting Days, Worse Since - onset Timing: Constant Severity Initially: Mild Severity Currently: Severe Pain Intensity: 9 Character: Sharp, Dull Aggravating Factor(s): Nothing Alleviating Factor(s): Nothing Associated Signs And Symptoms: Positive: Back Pain - Risk Factors Ovarian Torsion Risk Factor: Tubal Ligation - Allergies/Home Medications Allergies/Adverse Reactions: Allergies Allergy/AdvReac Type Severity Reaction Status Date / Time No Known Allergies Allergy Verified 12/29/18 11:47 PMH/Surg Hx/FS Hx/Imm Hx - Surgical History Surgical History: Yes Surgery Procedure, Year, and Place: BILATERAL TUBES EARS, 2007. , September 2018 - Family History Known Family History: Positive: Unknown, Hypertension Negative: Cardiac Disease, Diabetes - Social History Alcohol Use: None Substance Use Type: None Smoking Status (MU): Former Smoker Type: Cigarettes Amount Used/How Often: 1/2ppd Length of Time of Smoking/Using Tobacco: 1997 Have You Smoked in the Last Year: Yes Household Exposure Type: Cigarettes - Immunization History Most Recent Influenza Vaccination: 01/26/17 Most Recent Tetanus Shot: 2018 Vaccination Up to Date: Yes Review of Systems All Other Systems Reviewed And Are Negative: Yes Constitutional: Positive: Fever, Chills, Fatigue Skin: Positive: Negative Eyes: Positive: Negative ENT: Positive: Negative Respiratory: Positive: Negative Cardiovascular: Positive: Negative Gastrointestinal: Positive: Other - right flank pain Genitourinary: Positive: Frequency, Urgency Motor: Positive: Negative Neurovascular: Positive: Negative Musculoskeletal: Positive: Negative Neurological: Positive: Negative Psychological: Positive: Negative Is Patient Immunocompromised?: No Physical Exam Triage Information Reviewed: Yes Appearance: Ill-Appearing Vital Signs: Initial Vital Signs Temp 98.3 F 12/29/18 11:43 Pulse 79 12/29/18 11:43 Resp 16 12/29/18 11:43 BP 118/66 12/29/18 11:43 Pulse Ox 98 12/29/18 11:43 Vital Signs Reviewed: Yes Eye Exam: Normal ENT Exam: Normal Dental Exam: Normal Neck exam: Normal Respiratory Exam: Normal Cardiovascular Exam: Normal Abdomen Description: Positive: Other: - c/o mild tenderness to RLQ Musculoskeletal Exam: Normal Neurological Exam: Normal Psychological Exam: Normal Skin Exam: Normal Diagnostics - Radiology No standard instances Radiology Interpretation Completed By: Radiologist - Head Usher: Jose Bolanos Daniel ([id number]) Experimental Electronics Developer: YENNI (NUANCE) Report Date: 12/29/2018 12:09:00 Report Status: Final Start of Report Content ====== Patient Name: CHARITO ACOSTA Medical Record#: [id number] Ordering Physician: Darling Williamson DEVELOPMENT VICE PRESIDENT Acct.#: [id number] : 1980 Age: 38 Sex: F Location: [facility] Exam Date: 12/29/18 1209 ADM Status: [facility] ER Order Information: CT ABD/PEL W/O Accession Number: [id number] CPT: 28783 CLINICAL HISTORY: kidney stone protocol COMPARISON: None relevant available at the time of dictation. TECHNIQUE: Multiple contiguous axial CT scans were obtained of the abdomen and pelvis, without intravenous contrast enhancement. Coronal and sagittal multiplanar reformations are submitted for review. Oral contrast was not administered. FINDINGS: Evaluation is limited due to the lack of intravenous contrast. This limits evaluation of the solid organs and vasculature. LUNG BASES: The lung bases are clear. LIVER: The liver is normal in shape, size, contour, and attenuation. BILE DUCTS: There is no intrahepatic or extrahepatic biliary dilatation. GALLBLADDER: The gallbladder is normal, without pericholecystic inflammatory change. PANCREAS: The pancreas is normal, without mass or ductal dilatation. SPLEEN: Normal in size and appearance. UPPER GI TRACT: Evaluation of the gastrointestinal tract is limited by incomplete gastric distention. The upper GI tract is unremarkable. SMALL BOWEL AND MESENTERY: The small bowel is normal in contour, course, and caliber. There is no obstruction or dilatation. COLON: The colon is normal in contour, course, caliber. There is no pericolonic inflammatory change. ADRENALS: Normal bilaterally. KIDNEYS: There is a calyceal system of the midpole of the right kidney. There is no appreciable ureteral calculus. There is mild hydroureter on the right. BLADDER: The bladder is smooth in contour. PELVIC ORGANS: The uterus and adnexa are grossly normal for technique. AORTA: The aorta is normal. IVC: Unremarkable LYMPH NODES: There is no lymphadenopathy by size criteria. ABDOMINAL WALL: There is no evidence for abdominal wall hernia. BONES AND SOFT TISSUES: There are mild diffuse degenerative changes. OTHER: None IMPRESSION: RIGHT RENAL CALYCEAL STONE WITH MILD RIGHT HYDROURETER WHICH MAY INDICATE A RECENTLY PASSED URETERAL STONE. <Electronically signed by Jose Bolanos MD in [place]> 12/29/181246 Dictated By: Jose Bolanos MD Dictated Date/Time: 12/29/181244 Transcribed Date/Time: 12/29/181244 Copy to: CC:Darling Williamson NP; Lm Archuleta MD; June APPIAH Imaging - [facility] - [place] [facility] - [facility] [address] [place] [id number] ph [phone] ph ([phone]) ph ([phone]) End of Report Content ==== Complaint Female Dx - Course Course Of Treatment: I discussed the results of the CT with the pt, the need to remain well hydrated and the need to follow up with her PCP as needed. Additionally, I discussed the use of antibiotics for the pt possible UTI. Pt is 3 months post . - Differential Dx/Diagnosis Differential Diagnosis/HQI/PQRI: Ureteral Stone, Urinary Tract Infection Provider Diagnosis: Kidney calculi, Malaise, UTI (urinary tract infection) Discharge ED - Sign-Out/Discharge Documenting (check all that apply): Patient Departure All imaging exams completed and their final reports reviewed: Yes - Discharge Plan Condition: Stable Disposition: HOME Prescriptions: Nitrofurantoin Monohyd/M-Cryst [Macrobid 100 mg Capsule] 100 mg PO Q12H #14 cap Patient Education Materials: Kidney Stones (ED), Urinary Tract Infection in Women (ED) Referrals: June Bee PA [Primary Care Provider] - As Soon As Possible Additional Instructions: Please make sure you follow up with your PCP as needed. If your symptoms do not improve, please seek care at the closest emergency room as soon as possible. - Billing Disposition and Condition Condition: STABLE Disposition: Home
--- NOTE | 2018-12-31 07:08 | UC ---
- Progress Note Progress Note: urine culture - final - no growth no change marj Course/Dx - Diagnoses Provider Diagnoses: Kidney calculi, Malaise, UTI (urinary tract infection) Discharge ED - Sign-Out/Discharge Documenting (check all that apply): Post-Discharge Follow Up All imaging exams completed and their final reports reviewed: Yes - Discharge Plan Condition: Stable Disposition: HOME Prescriptions: Nitrofurantoin Monohyd/M-Cryst [Macrobid 100 mg Capsule] 100 mg PO Q12H #14 cap Patient Education Materials: Kidney Stones (ED), Urinary Tract Infection in Women (ED) Forms: *Work Release Referrals: June Bee PA [Primary Care Provider] - As Soon As Possible Additional Instructions: Please make sure you follow up with your PCP as needed. If your symptoms do not improve, please seek care at the closest emergency room as soon as possible. - Billing Disposition and Condition Condition: STABLE Disposition: Home
== END 2018-12-29 13:03 | disposition home or self-care (01) ==
LOC: UCCORT 11:12
DX: N39.0 Urinary tract infection, site not specified (principal); R53.81 Other malaise; N20.0 Calculus of kidney; N13.4 Hydroureter; Z87.891 Personal history of nicotine dependence
CPT/HCPCS: 74176; 81003; 87086; 99212; G0463